=== PATIENT | female | born 1955 | race Caucasian/White ===

== ENCOUNTER 2023-09-25 14:10 | Emergency (ER) | payer BC, SELFPAY ==
[2023-09-25 14:21] VITALS: BP 129/87
[2023-09-25 14:22] VITALS: BP 159/87
[2023-09-25] MEDS: DILAUDID 0.5 MG IV (15:47)
[2023-09-25] MEDS: ZOFRAN 4 MG IV (15:47)
[2023-09-25] MEDS: NSS 1000 IV ×2 (15:48→16:44)
[2023-09-25] MEDS: DILAUDID 1 MG IV (16:08)
[2023-09-25 16:11] LABS: % Basophils 0.3 % (0-2); % Eosinophils 0.1 % (0-6); % Immature Granulocytes 0.3 % (0-0.5); % Lymphocytes 7.9 % (20.5-51.1); % Monocytes 3.4 % (1.7-9.3); Absolute Lymphocytes 0.7 10^3/uL (1.2-3.4); Absolute Monocytes 0.3 10^3/uL (0.1-0.6); Absolute Neutrophils 8.1 10^3/uL (1.4-6.5); Hematocrit 40.5 % (37.0-47.0); Hemoglobin 14.3 g/dL (12.0-16.0); Mean Corp Hgb Conc. 35.3 g/dL (33.0-37.0); Mean Corpuscular Hgb 31.6 pg (27.0-31.0); Mean Corpuscular Volume 89.6 fL (81.0-99.0); Mean Platelet Volume 9.3 fL (7.4-10.4); Nucleated Red Blood Cells % 0 %; Platelet Count 250 10^3/uL (130-400); Red Blood Cell Count 4.52 10^6/uL (4.20-5.40); Red Cell Dist. Width 12.9 % (11.5-14.5); White Blood Cell Count 9.2 10^3/uL (4.8-10.8)
[2023-09-25 16:19] LABS: ALT (SGPT) 27 U/L (0-35); AST (SGOT) 33 U/L (14-36); Albumin 4.6 g/dl (3.5-5.0); Alkaline Phosphatase 88 U/L (38-126); Blood Urea Nitrogen 23 mg/dl (7-17); Calcium 9.4 mg/dl (8.4-10.2); Carbon Dioxide 21 mmol/L (22-30); Chloride 110 mmol/L (98-107); Glucose 135 mg/dl (70-99); Lipase 116 U/L (23-300); Potassium 4.1 mmol/L (3.5-5.1); Sodium 138 mmol/L (135-145); Total Bilirubin 1.6 mg/dl (0.2-1.3); Total Protein 6.9 g/dl (6.3-8.2); eGFR > 60.00
--- NOTE | 2023-09-25 17:13 | ED.GENMED ---
History of Present Illness
General
Chief Complaint: Back Pain
Source: patient and family
Time Seen by Provider: 09/25/23 15:16
Travel History
Have you had any contact with someone who has COVID-19?: No
Do you have any symptoms of coronavirus? Fever > 100 degrees, chills, cough, shortness of breath, sore throat, loss of taste or smell, muscle aches, or headache?: No
History of Present Illness
History of Present Illness:
5-year-old female presents with severe right flank pain rating around to her abdomen. The patient that she has a history of kidney stones but typically in the past that has been lower than it is today. She also presents vomiting. Patient states
she woke up with the pain. However, the pain got much worse this afternoon. No fevers. No dysuria. No injury.
Past History
Past History
ED Past Medical History: HTN and Hypercholesterolemia
ED Past Surgical History: Cardiac and Gynecological
Phy Exam
Physical Exam
Physical Exam:
CONSTITUTIONAL Patient alert and oriented to person, place and time. Severe pain distress on examination. Vital signs reviewed.
HEAD atraumatic, normocephalic.
EYES eyelids normal to inspection, Extraocular muscles intact, Conjunctiva normal, Sclera normal.
NECK normal range of motion, Trachea midline, no jugular venous distention.
RESPIRATORY CHEST No respiratory distress noted, Chest expansion equal, Bilateral breath sounds clear.
CARDIOVASCULAR regular rate and rhythm, Heart sounds normal.
ABDOMEN mild diffuse tenderness, Bowel sounds normal. No distention.
BACK normal inspection, no obvious deformities, no noted CVA tenderness, no rash
UPPER EXTREMITY range of motion normal, Motor strength normal, no cyanosis, no edema.
LOWER EXTREMITY range of motion normal, Motor strength normal, no cyanosis, no edema.
NEURO Speech normal, No focal motor deficits, Liliya coma scale 15, Memory normal, Cranial Nerves intact to screening exam.
SKIN skin warm, dry, and normal in color.
PSYCHIATRIC patient oriented to person place and time, Normal affect.
Course
Orders/Labs/Results
Orders:
Orders
09/25/23 15:29
0.9% Sodium Chloride 1000 ml [Nss] 1,000 ml IV BOLUS
HYDROmorphone [Dilaudid] 0.5 mg IV NOW STA
Ondansetron Injectable [Zofran] 4 mg IV NOW STA
09/25/23 15:30
CT Abd/pel Without Iv Or Oral Urgent
Comment:
Reason For Exam: R flank pain, vomiting
0.9% Sodium Chloride 1000 ml [Nss] 1,000 ml IV BOLUS
09/25/23 15:53
Complete Blood Count/With Diff Urgent
Comprehensive Metabolic Panel Urgent
Lipase Urgent
09/25/23 15:55
HYDROmorphone [Dilaudid] 1 mg IV NOW STA
09/25/23 15:56
HYDROmorphone [Dilaudid] 1 mg .ROUTE .STK-MED ONE
09/25/23 17:12
Ketorolac [Toradol] 15 mg IV NOW STA
09/25/23 17:19
Urinalysis Reflex To Culture Urgent
Date Specimen was Collected: 09/25/23
Time Specimen was Collected: 16:57
Urine Microscopic Reflex Cult Urgent
09/25/23 18:57
Acetaminophen [Tylenol] 1,000 mg PO NOW STA
Abnormal Lab Results
09/25/23 09/25/23
15:53 17:19
MCH 31.6 H pg
(27.0-31.0)
Absolute Neuts (auto) 8.1 H 10^3/uL
(1.4-6.5)
Absolute Lymphs (auto) 0.7 L 10^3/uL
(1.2-3.4)
Neutrophils % 88.0 H %
(42.2-75.2)
Lymphocytes % 7.9 L %
(20.5-51.1)
Chloride 110 H mmol/L
(98-107)
Carbon Dioxide 21 L mmol/L
(22-30)
BUN 23 H mg/dl
(7-17)
Glucose 135 H mg/dl
(70-99)
Total Bilirubin 1.6 H mg/dl
(0.2-1.3)
Urine Ketones 2+ A
(Negative)
Ur Occult Blood Reflex 1+ A
(Negative)
Urine RBC 21-25 A /HPF
(0-2)
09/25/23 15:53
09/25/23 15:53
Vital Signs
Initial and Last Documented VS:
Initial Vital Signs
Temp Pulse Resp BP Pulse Ox
98.1 F 79 18 129/87 97
09/25/23 14:21 09/25/23 14:21 09/25/23 14:21 09/25/23 14:21 09/25/23 14:21
Last Documented Vital Signs
Temp Pulse Resp BP Pulse Ox
98.1 F 73 16 166/72 95
09/25/23 14:21 09/25/23 17:22 09/25/23 17:22 09/25/23 17:22 09/25/23 17:22
MDM/Problems Addressed
Differential Diagnosis Includes:
Cholelithiasis, nephrolithiasis, zoster, AAA, colitis, appendicitis
MDM/Problems Addressed:
Nephrolithiasis, severe pain, vomiting, dehydration
*Radiology
Radiology exam reviewed: preliminary read by ED provider (Hydronephrosis noted on the right) and radiology read reviewed
*Pulse Oximetry
Patient hypoxic: no
*Critical Care Note
Total Time (30-74mins, 75-104mins- exclusive of procedures): Not Applicable
Data Reviewed
Source: patient and family
Further Testing Considered But Not Given:
Considered IV contrast study but in light of her age wanted to rule out AAA quickly.
Update Note
Update Note:
Patient reassessed and pain is much improved. Mild amount of pain persist. Await urinalysis.
60 9 PM. Patient reassessed and pain has significantly improved. Will treat with Flomax, pain meds and outpatient urology follow-up
ED Attending Note
-
Portions of this chart may have been created with voice recognition software.� Occasional wrong word or��sound alike� substitutions may have occurred due to the inherent limitations of voice recognition software.
Discharge Plan
Departure
Patient Disposition: Home (Routine Discharge)
Date of Disposition: 09/25/23
Time of Disposition: 18:59
Patient with high blood pressure during this ER visit?: Yes
Discharge Problem:
Ureterolithiasis
Instructions: Kidney Stones (DC)
Prescriptions:
New
tamsulosin [Flomax] 0.4 mg capsule
0.4 mg PO DAILY Qty: 14 0RF
hydrocodone-acetaminophen 5-325 mg tablet
1 tab PO Q6H PRN (Reason: Pain) Qty: 14 0RF
No Action
multivitamin Tablet
1 tab PO DAILY
atorvastatin 80 mg Tablet
80 mg PO QPM
cyanocobalamin (vitamin B-12) [Vitamin B-12] 1,000 mcg Tablet
1,000 mcg PO DAILY
acetaminophen 500 mg Tablet
1,000 mg PO Q6H PRN (Reason: mild pain/fever)
losartan 25 mg Tablet
25 mg PO QPM
levothyroxine 200 mcg Tablet
200 mcg PO DAILY
biotin 1 mg Tablet
1 mg PO DAILY
Referrals:
Rk Roblero MD [Active] -
Amanda Bradshaw MD [Family Provider] -
Activity Restrictions/Additional Instructions:
Please drink plenty fluids. Please see your doctor or urology in the next 3 to 5 days for follow-up and reevaluation. Return to ED for intractable vomiting, intractable pain, fevers or any other concerns.
Interventions
Interventions:
*General Assessment Last Done: 09/25/23 17:17
*Neglect/Abuse Screening Last Done: 09/25/23 17:21
*ED COVID-19 Vaccine History Last Done: 09/25/23 14:21
ED-Musculoskeletal Assessment Last Done: 09/25/23 17:17
[2023-09-25] MEDS: TORADOL 15 MG IV (17:15)
[2023-09-25 17:21] VITALS: BMI 37.1
[2023-09-25 17:22] VITALS: BP 166/72
[2023-09-25 17:32] LABS: Urine Albumin Negative (Neg - Trace); Urine Bilirubin Negative (Negative); Urine Character Clear (Clear); Urine Color Yellow; Urine Glucose Negative (Negative); Urine Ketone 2+ (Negative); Urine Leukocyte Negative (Negative); Urine Nitrite Negative (Negative); Urine Occult Blood 1+ (Negative); Urine Urobilinogen Negative (Neg - 1+)
[2023-09-25 17:40] LABS: Urine Red Blood Cell 21-25 /HPF (0-2); Urine White Cell 0-2 /HPF (0-5)
== END 2023-09-25 20:07 | disposition home or self-care (01) ==
LOC: EMR 14:10
PROVIDERS: EMERGENCY PHYSICIAN Emergency Medicine; FAMILY PHYSICIAN Internal Medicine
DX: R10.30 Lower abdominal pain, unspecified (principal); I10 Essential (primary) hypertension; E78.00 Pure hypercholesterolemia, unspecified
CPT/HCPCS: 99284; 96374; 96375; 96376; 96361; 74176; 80053; 81003; 81015; 83690; 85025

== ENCOUNTER → 2023-11-30 10:00 | Outpatient (REF) | payer BC, SELFPAY ==
[2023-11-30 11:16] LABS: % Basophils 0.9 % (0-2); % Immature Granulocytes 0.2 % (0-0.5); % Lymphocytes 30.7 % (20.5-51.1); % Monocytes 10.7 % (1.7-9.3); % Neutrophils 54.5 % (42.2-75.2); Absolute Basophils 0.1 10^3/uL (0-0.2); Absolute Eosinophils 0.2 10^3/uL (0-0.7); Absolute Lymphocytes 1.7 10^3/uL (1.2-3.4); Absolute Monocytes 0.6 10^3/uL (0.1-0.6); Absolute Neutrophils 3.1 10^3/uL (1.4-6.5); Hematocrit 39.2 % (37.0-47.0); Hemoglobin 12.7 g/dL (12.0-16.0); Mean Corp Hgb Conc. 32.4 g/dL (33.0-37.0); Mean Corpuscular Hgb 30.8 pg (27.0-31.0); Mean Corpuscular Volume 94.9 fL (81.0-99.0); Mean Platelet Volume 9.5 fL (7.4-10.4); Nucleated Red Blood Cells % 0 %; Platelet Count 238 10^3/uL (130-400); Red Blood Cell Count 4.13 10^6/uL (4.20-5.40); Red Cell Dist. Width 12.9 % (11.5-14.5); White Blood Cell Count 5.6 10^3/uL (4.8-10.8)
[2023-11-30 11:39] LABS: ALT (SGPT) 32 U/L (0-35); AST (SGOT) 43 U/L (14-36); Albumin 4.3 g/dl (3.5-5.0); Alkaline Phosphatase 66 U/L (38-126); Blood Urea Nitrogen 19 mg/dl (7-17); Calcium 9.7 mg/dl (8.4-10.2); Carbon Dioxide 29 mmol/L (22-30); Chloride 105 mmol/L (98-107); Glucose 91 mg/dl (70-99); HDL Cholesterol 65 mg/dl; LDL Cholesterol, Calculated 53 mg/dl; Sodium 138 mmol/L (135-145); Total Cholesterol 131 mg/dl (50-199); Total Protein 6.5 g/dl (6.3-8.2); Triglyceride 66 mg/dl (10-149); Very Low Density Lipoprotein 13 mg/dl (0-30); eGFR > 60.00
[2023-11-30 12:12] LABS: TSH 0.32 uIU/ml (0.47-4.68)
[2023-11-30 12:49] LABS: Glycohemoglobin (HgbA1c) 5.9 % (4.0-5.6)
== END ==
LOC: REG 10:00
PROVIDERS: ATTENDING PHYSICIAN Nurse Practitioner
DX: I10 Essential (primary) hypertension (principal); E03.9 Hypothyroidism, unspecified; E78.5 Hyperlipidemia, unspecified; R73.03 Prediabetes; Z68.36 Body mass index [BMI] 36.0-36.9, adult
CPT/HCPCS: 36415; 80053; 80061; 83036; 84443; 85025

== ENCOUNTER → 2024-02-29 11:05 | Outpatient (REF) | payer BC, SELFPAY | LOC: RCS 11:05 | PROVIDERS: ATTENDING PHYSICIAN Internal Medicine Cardiovascular Disease; FAMILY PHYSICIAN Internal Medicine | DX: Z95.1 Presence of aortocoronary bypass graft (principal); R09.89 Other specified symptoms and signs involving the circulatory and respiratory systems | CPT/HCPCS: 93306 ==

== ENCOUNTER → 2024-08-07 14:58 | Outpatient (REF) | payer BC, SELFPAY | LOC: HWRAD 14:58 | PROVIDERS: ATTENDING PHYSICIAN Internal Medicine Cardiovascular Disease; FAMILY PHYSICIAN Internal Medicine | DX: R09.89 Other specified symptoms and signs involving the circulatory and respiratory systems (principal) | CPT/HCPCS: 93880 ==

== ENCOUNTER → 2024-10-14 13:32 | Outpatient (REF) | payer BC, SELFPAY | LOC: HWWDC 13:32 | PROVIDERS: ATTENDING PHYSICIAN Nurse Practitioner | DX: Z12.31 Encounter for screening mammogram for malignant neoplasm of breast (principal) | CPT/HCPCS: 77063; 77067 ==

== ENCOUNTER → 2024-11-13 11:33 | Outpatient (REF) | payer BC, SELFPAY ==
[2024-11-13 12:45] LABS: % Basophils 0.9 % (0-2); % Eosinophils 3.2 % (0-6); % Immature Granulocytes 0.2 % (0-0.5); % Lymphocytes 30.2 % (20.5-51.1); % Monocytes 9.6 % (1.7-9.3); % Neutrophils 55.9 % (42.2-75.2); Absolute Eosinophils 0.2 10^3/uL (0-0.7); Absolute Lymphocytes 1.4 10^3/uL (1.2-3.4); Absolute Monocytes 0.5 10^3/uL (0.1-0.6); Absolute Neutrophils 2.6 10^3/uL (1.4-6.5); Hematocrit 40.9 % (37.0-47.0); Hemoglobin 13.4 g/dL (12.0-16.0); Mean Corp Hgb Conc. 32.8 g/dL (33.0-37.0); Mean Corpuscular Hgb 30.5 pg (27.0-31.0); Mean Corpuscular Volume 93.2 fL (81.0-99.0); Mean Platelet Volume 9.3 fL (7.4-10.4); Nucleated Red Blood Cells % 0 %; Platelet Count 240 10^3/uL (130-400); Red Blood Cell Count 4.39 10^6/uL (4.20-5.40); Red Cell Dist. Width 13.3 % (11.5-14.5); White Blood Cell Count 4.7 10^3/uL (4.8-10.8)
[2024-11-13 13:40] LABS: ALT (SGPT) 38 U/L (0-35); AST (SGOT) 42 U/L (14-36); Albumin 4.2 g/dl (3.5-5.0); Alkaline Phosphatase 92 U/L (38-126); Blood Urea Nitrogen 23 mg/dl (7-17); Calcium 9.6 mg/dl (8.4-10.2); Carbon Dioxide 30 mmol/L (22-30); Chloride 104 mmol/L (98-107); Glucose 99 mg/dl (70-99); HDL Cholesterol 63 mg/dl; LDL Cholesterol, Calculated 77 mg/dl; Potassium 4.5 mmol/L (3.5-5.1); Sodium 139 mmol/L (135-145); Total Bilirubin 1.7 mg/dl (0.2-1.3); Total Cholesterol 155 mg/dl (50-199); Total Protein 6.5 g/dl (6.3-8.2); Triglyceride 76 mg/dl (10-149); Very Low Density Lipoprotein 15 mg/dl (0-30); eGFR > 60.00
[2024-11-13 14:28] LABS: Glycohemoglobin (HgbA1c) 5.6 % (4.0-5.6)
== END ==
LOC: REG 11:33
PROVIDERS: ATTENDING PHYSICIAN Nurse Practitioner
DX: Z00.00 Encounter for general adult medical examination without abnormal findings (principal); I10 Essential (primary) hypertension; E03.9 Hypothyroidism, unspecified; R53.82 Chronic fatigue, unspecified; E78.5 Hyperlipidemia, unspecified; Z95.1 Presence of aortocoronary bypass graft; Z68.36 Body mass index [BMI] 36.0-36.9, adult
CPT/HCPCS: 36415; 80053; 80061; 83036; 84443; 85025

== ENCOUNTER → 2025-02-06 10:03 | Outpatient (REF) | payer BC, SELFPAY ==
[2025-02-06 11:54] LABS: % Basophils 0.6 % (0-2); % Eosinophils 3.7 % (0-6); % Immature Granulocytes 0.2 % (0-0.5); % Lymphocytes 22.5 % (20.5-51.1); % Monocytes 11.4 % (1.7-9.3); % Neutrophils 61.6 % (42.2-75.2); Absolute Eosinophils 0.2 10^3/uL (0-0.7); Absolute Lymphocytes 1.2 10^3/uL (1.2-3.4); Absolute Monocytes 0.6 10^3/uL (0.1-0.6); Absolute Neutrophils 3.2 10^3/uL (1.4-6.5); Hemoglobin 13.4 g/dL (12.0-16.0); Mean Corp Hgb Conc. 33.5 g/dL (33.0-37.0); Mean Corpuscular Hgb 30.9 pg (27.0-31.0); Mean Corpuscular Volume 92.4 fL (81.0-99.0); Mean Platelet Volume 9.4 fL (7.4-10.4); Nucleated Red Blood Cells % 0 %; Platelet Count 263 10^3/uL (130-400); Red Blood Cell Count 4.33 10^6/uL (4.20-5.40); Red Cell Dist. Width 12.9 % (11.5-14.5); White Blood Cell Count 5.2 10^3/uL (4.8-10.8)
[2025-02-06 12:21] LABS: ALT (SGPT) 23 U/L (0-35); AST (SGOT) 31 U/L (14-36); Albumin 4.3 g/dl (3.5-5.0); Alkaline Phosphatase 65 U/L (38-126); Blood Urea Nitrogen 28 mg/dl (7-17); Calcium 9.4 mg/dl (8.4-10.2); Carbon Dioxide 27 mmol/L (22-30); Chloride 110 mmol/L (98-107); Glucose 107 mg/dl (70-99); Potassium 4.4 mmol/L (3.5-5.1); Sodium 141 mmol/L (135-145); Total Bilirubin 1.5 mg/dl (0.2-1.3); Total Protein 6.7 g/dl (6.3-8.2); eGFR > 60.00
[2025-02-06 12:51] LABS: TSH 4.87 uIU/ml (0.47-4.68)
== END ==
LOC: REG 10:03
PROVIDERS: ATTENDING PHYSICIAN Nurse Practitioner
DX: E03.9 Hypothyroidism, unspecified (principal); E78.5 Hyperlipidemia, unspecified; R74.8 Abnormal levels of other serum enzymes
CPT/HCPCS: 36415; 80053; 84443; 85025

== ENCOUNTER → 2025-03-04 17:29 | Outpatient (REF) | payer BC, SELFPAY ==
[2025-03-04 18:01] LABS: Urine Character Clear (Clear)
[2025-03-04 18:10] LABS: Urine Squamous Cell >30 /LPF (Few)
[2025-03-04 18:11] LABS: Urine Red Blood Cell 16-20 /HPF (0-2); Urine White Cell 0-2 /HPF (0-5)
== END ==
LOC: OLAB 17:29
PROVIDERS: ATTENDING PHYSICIAN Urology
DX: R31.29 Other microscopic hematuria (principal)
CPT/HCPCS: 81003; 81015

== ENCOUNTER → 2025-03-16 09:34 | Outpatient (REF) | payer BC, SELFPAY | LOC: HWRAD 09:34 | PROVIDERS: ATTENDING PHYSICIAN Urology; FAMILY PHYSICIAN Internal Medicine | DX: R31.29 Other microscopic hematuria (principal); N20.0 Calculus of kidney | CPT/HCPCS: 76775 ==

== ENCOUNTER 2025-07-12 06:22 | Day surgery (SDC) | payer BC, SELFPAY ==
[2025-07-07 10:57] LABS: Hematocrit 38.5 % (37.0-47.0); Hemoglobin 13.0 g/dL (12.0-16.0); Mean Corp Hgb Conc. 33.8 g/dL (33.0-37.0); Mean Corpuscular Volume 94.1 fL (81.0-99.0); Platelet Count 250 10^3/uL (130-400); Red Cell Dist. Width 13.0 % (11.5-14.5)
[2025-07-07 13:47] VITALS: BMI 31.9
[2025-07-07 16:15] LABS: Blood Urea Nitrogen 23 mg/dl (7-17); Calcium 9.4 mg/dl (8.4-10.2); Carbon Dioxide 29 mmol/L (22-30); Chloride 103 mmol/L (98-107); Estimated Creatinine Clearance 65 ml/min; Glucose 85 mg/dl (70-99); Potassium 4.5 mmol/L (3.5-5.1); Sodium 136 mmol/L (135-145); eGFR > 60.00
[2025-07-12] VITALS (9 sets, daily range): BP systolic 103–130; BP diastolic 62–69; BMI 31.9
[2025-07-12] MEDS: HEPARIN 5000 UNITS SC (14:50)
== END 2025-07-12 19:28 | disposition home or self-care (01) ==
LOC: SDS 06:22
PROVIDERS: ATTENDING PHYSICIAN Obstetrics & Gynecology; FAMILY PHYSICIAN Nurse Practitioner
DX: N81.2 Incomplete uterovaginal prolapse (principal); N39.3 Stress incontinence (female) (male); N36.41 Hypermobility of urethra; N95.8 Other specified menopausal and perimenopausal disorders
CPT/HCPCS: 57288; 57120; 57250; 36415; 80048; 85027; 86850; 86900; 86901; C1771; J1580

== ENCOUNTER → 2025-08-14 11:18 | Outpatient (REF) | payer BC, SELFPAY ==
[2025-08-14 12:41] LABS: ALT (SGPT) 40 U/L (0-35); AST (SGOT) 45 U/L (14-36); Albumin 4.2 g/dl (3.5-5.0); Alkaline Phosphatase 74 U/L (38-126); Blood Urea Nitrogen 24 mg/dl (7-17); Calcium 9.4 mg/dl (8.4-10.2); Carbon Dioxide 25 mmol/L (22-30); Chloride 109 mmol/L (98-107); Glucose 89 mg/dl (70-99); Potassium 4.5 mmol/L (3.5-5.1); Sodium 138 mmol/L (135-145); Total Protein 6.5 g/dl (6.3-8.2); eGFR > 60.00
[2025-08-14 13:08] LABS: TSH 0.52 uIU/ml (0.47-4.68)
[2025-08-14 14:18] LABS: Glycohemoglobin (HgbA1c) 5.3 % (4.0-5.9)
== END ==
LOC: REG 11:18
PROVIDERS: ATTENDING PHYSICIAN Nurse Practitioner
DX: Z71.3 Dietary counseling and surveillance (principal); E03.9 Hypothyroidism, unspecified; E78.5 Hyperlipidemia, unspecified; R74.8 Abnormal levels of other serum enzymes
CPT/HCPCS: 36415; 80053; 83036; 84443